=== PATIENT | male | born 1950 | race Caucasian/White ===

== ENCOUNTER 2018-01-20 10:18 | Day surgery (SDC) | payer MEDICARE, BC ==
[2018-01-20] MEDS ORDERED: Bupivacaine 0.5% 10 ML VIAL ONE (11:13)
--- NOTE | 2018-01-20 11:21 | RAD ---
3 VIEWS RIGHT THUMB: Date: 01/20/18 HISTORY: Injury to right thumb. Patient injured right thumb with table saw. FINDINGS: There is soft tissue irregularity involving the distal aspect of the right thumb related to laceratio n. There is associated subcutaneous edema. There is a mildly comminuted fracture involving the distal aspect and tuft of the distal phalanx right thumb related to recent injury. There does appear to be absence of the tip of the distal right finger. No dislocation or other osseous abnormality seen. IMPRESSION: Fracture distal right thumb and involving the tuft of the distal phalanx of the right thumb with abse nce of overlying soft tissue. This may be related to open fracture due to mechanism of injury and abs ence of a portion of the subcutaneous soft tissues. POS: YUMIKO
[2018-01-20] MEDS ORDERED: Adacel (T-DAP) 0.5 ML VIAL ONE (11:34)
[2018-01-20] MEDS ORDERED: CEFAZOLIN/Water 2 GM/20 ML SYRINGE ONE (11:34)
[2018-01-20 12:17] LABS: #Eosinphils 0.6 thou/uL (0.0-0.7); #Lymphocytes 1.3 thou/uL (1.20-3.40); #Monocytes 0.7 thou/uL (0.11-0.59); #Neutrophils 3.8 thou/uL (1.40-6.50); %Basophils 0.5 % (0.0-1.0); %Eosinophils 9.2 % (0.0-10.0); %Lymphocytes 19.5 % (21.0-51.0); %Monocytes 10.7 % (0.0-10.0); Mean Corpuscular HGB CONC 32.3 g/dL (32.0-36.0); Mean Corpuscular Hemoglobin 30.1 pg (27.0-31.0); Mean Corpuscular Volume 93.3 fl (80.0-94.0); Mean Platelet Volume 7.8 fL (7.4-10.4); Platelet Count 249 thou/uL (130-400); RBC Distribution Width 12.8 % (11.5-14.5); Red Blood Cell (RBC) Count 4.66 mill/uL (4.70-6.10); White Blood Cell (WBC) Count 6.4 thou/uL (4.8-10.8)
[2018-01-20] MEDS ORDERED: CEFAZOLIN/Water 2 GM/20 ML SYRINGE SLOW IVP SCH (12:30)
[2018-01-20] MEDS ORDERED: Bupivacaine HCl 0.5%/Epinephrine 1:200,000/PF 30 ml Vial ONE (12:32)
[2018-01-20 12:36] LABS: ALT (SGPT) 16 U/L (8-55); AST (SGOT) 20 U/L (5-34); Albumin 4.3 g/dL (3.4-4.8); Alkaline Phosphatase 97 U/L (40-150); Anion Gap 9 mmol/L (10-20); BUN (Urea Nitrogen) 20 mg/dL (8.4-25.7); Bilirubin, Total 0.5 mg/dL (0.2-1.2); Calc. Creatinine Clearance 0 mL/min (70-130); Calcium 10.6 mg/dL (7.8-10.44); Carbon Dioxide 29 mmol/L (23-31); Chloride 106 mmol/L (98-107); Estimated GFR-MDRD 69; Globulin 2.7 g/dL (2.4-3.5); Glucose 101 mg/dL (80-115); Potassium 3.8 mmol/L (3.5-5.1); Sodium 140 mmol/L (136-145)
--- NOTE | 2018-01-20 12:39 | HP ---
DATE OF CONSULTATION: 01/20/2018 REQUESTING PHYSICIAN: Dr. Jamison. CONSULTING PHYSICIAN: Dr. Bismark Simons. REASON FOR CONSULTATION: Right thumb injury. HISTORY OF PRESENT ILLNESS: This is a 67-year-old white male who presented to the emergency departme today shortly after a table saw injury to his right thumb around 10:00 this morning. The patient states that he is right hand dominant. No other injuries incurred at the time. The patient has had a similar injury to his left thumb in the past with a partial amputation. At the time of my history, the patient has received a digital block to the right thumb. He reports numbness. He denies any pa in to any of the digits or his wrist. Patient states he last ate at 8:30 this morning. PAST MEDICAL HISTORY: Significant for hypertension, diabetes, and asthma. PAST SURGICAL HISTORY: Significant for back surgery, sinus surgery, colon surgery and skin cancer re moval from abdomen. SOCIAL HISTORY: The patient denies alcohol use or drug use. He reports a history of smoking approxi mately 20 years ago. FAMILY HISTORY: Reviewed and noncontributory. ALLERGIES: Include LATEX, PENICILLIN, and SULFA. REVIEW OF SYSTEMS: A 10-point review of systems conducted and otherwise negative except for as state d above. PHYSICAL EXAMINATION: VITAL SIGNS: Blood pressure of 160/76, pulse of 76, respiratory rate of 18, temperature of 98.4, O2 saturation of 96% on room air. GENERAL: The patient is awake, alert, and oriented x3. He is in no acute distress. is present at bedside in emergency department. HEENT: Head is normocephalic, atraumatic. NECK: Supple. LUNGS: Breathing is nonlabored. EXTREMITIES: The right upper extremity was examined. The patient has a partial oblique amputation o f the distal phalanx. This includes a portion of the nail bed. Patient is able to flex and extend a t the IP joint of the thumb. Sensation altered secondary to recent digital block by ER physician. R emainder of hand exam unremarkable. Wrist, elbow and shoulder exam also unremarkable on the affected extremity. 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 Remainder of extremity e xam is otherwise unremarkable. X-rays were taken in the emergency department including 3 views of th e right thumb show a partial oblique amputation of the distal phalanx of the right thumb. Soft tissu es are absent. This includes an oblique fracture of the distal phalanx. ASSESSMENT: Right thumb partial amputation with open fracture. PLAN: At this time, x-rays and plan of care were discussed with Dr. Simons as well as the patient and his . It was explained to the patient that he has an open fracture at this time. We will pr oceed with an irrigation and debridement in the operating room shortly. We will either partially ricardo rten the distal phalanx or create a skin flap in order to cover the exposed bone. Risks, benefits, a nd alternatives of surgery discussed at length with the patient and his . They verbalized unders tanding. We will proceed with surgery.
[2018-01-20] MEDS ORDERED: Midazolam HCl 2 mg/2 ml Vial ONE ×2 (13:02→13:34)
[2018-01-20] MEDS ORDERED: Fentanyl 100 MCG/2 ML VIAL ONE (13:02)
--- NOTE | 2018-01-20 15:13 | OP ---
DATE OF SURGERY: 01/20/2018 PREOPERATIVE DIAGNOSIS: Fingertip amputation, right thumb. POSTOPERATIVE DIAGNOSIS: Fingertip amputation, right thumb. SURGICAL PROCEDURES: 1. Irrigation and debridement of right thumb tip. 2. Partial closure of right thumb tip amputation. ANESTHESIA: Block. SURGEON: Bismark Simons M.D. THERAPIST RESPIRATORY: Ileana Hidalgo PA-C TOURNIQUET TIME: Zero. IMPLANTS: None. DRAINS: None. SPECIMEN: None. OUTCOME: Closed thumb tip amputation with soft tissue coverage over the distal phalanx. INDICATIONS: Ms. Knight is a pleasant 67-year-old right hand dominant gentleman who is status post tabl e saw versus thumb accident in which he sustained trauma to the ulnar border of the thumb with just a small entrance into the tuft of the distal phalanx. Upon evaluation, patient was found to have very vascular tissue and bleeding without obvious exposed bone. The patient now taken to the operating r oom for irrigation, debridement, and closure of the tip with anticipated granulation for the skin los s along the ulnar border. PROCEDURE IN DETAIL: The patient was brought to the operating room and a timeout performed followed by IV sedation. Patient did have a block placed previously. Next, a sterile prep and drape was perf ormed to the right upper extremity. Next, the wound was inspected. There was found to be no obvious foreign debris. There was soft tissue that had fully covered the distal phalanx; however, the tip o f the phalanx could be palpated. There was no obvious loose bony fragments appreciated. This wound was then irrigated with a liter of normal saline using bulb syringe. Next, the nail was trimmed back and then 4-0 nylon suture was passed through the tip of the nail across the zone of injury, grabbing the volar skin of the thumb tip. This basically advanced the volar skin up and over the tip of the distal phalanx getting skin coverage of this bone. Two sutures were placed in identical fashion. At the completion, this was not felt that would be beneficial to attempt to close the extension down th e ulnar border and this was felt to be tissue that would be an excellent candidate for granulation ti ssue and secondary closure. As such, the wound was then dressed with Xeroform gauze and a tube gauze dressing and then patient was transferred to recovery room in stable condition. There were no compl ications. He tolerated the procedure well.
--- NOTE | 2018-01-23 11:49 | PQF ---
[facility] POST DISCHARGE CLINICAL DOCUMENTATION IMPROVEMENT CLARIFICATION FORM Todays Date: 01/23/2018 Patients Name Dioni Knight V Admit Date 01/20/18 Disch Date 01/20/18 Heel Painter Name Sandra Whelan Email: [email or web address] Clinical Indicators - Signs / Symptoms Results and Location in Medical Record [ ] Documentation of: [ ] [ ] Documentation of: [ ] [ ] Documentation of: [ ] [ ] Documentation of: [ ] [ ] Risks [ ] [ ] [ ] Treatment [ ] Laceration Repair of Hand Please specify material type for repair of laceration [ ] [ ] Dr. Bismark Simons The documentation in this patients record requires clarification to ensure coding compliance and accuracy. Check the appropriate box and include in your discharge summary. [ ] [ ] [ ] [ ] Please check this box if this does not apply to this patient [ ] Unable to determine [ ] Other diagnosis: Review the following information and exercise your independent professional judgment in responding to the clarification. Based upon the clinical findings, risk factors, and treatment, please clarify if you are treating one of the above probable or suspected diagnoses. Physician Signature: Date Time MTDD
== END 2018-01-20 15:45 | disposition home or self-care (01) ==
LOC: ERS 10:18 → SDC 12:32
PROVIDERS: ATTEND Orthopaedic Surgery
PROC: 0JQJ0ZZ Repair Right Hand Subcutaneous Tissue and Fascia, Open Approach (ICD-10-PCS; principal; 2018-01-20)
DX: S61.011A Laceration without foreign body of right thumb without damage to nail, initial encounter (principal); I10 Essential (primary) hypertension; E11.9 Type 2 diabetes mellitus without complications; J45.909 Unspecified asthma, uncomplicated; Z87.891 Personal history of nicotine dependence; Z79.4 Long term (current) use of insulin; Z79.899 Other long term (current) drug therapy; Z88.0 Allergy status to penicillin; Z88.2 Allergy status to sulfonamides; Z91.040 Latex allergy status; W31.2XXA Contact with powered woodworking and forming machines, initial encounter
CPT/HCPCS: 36416; 80053; 85025; 86850; 86900; 86901; 90715; J0670; J2250; J3010; J3490

== ENCOUNTER 2020-05-03 07:46 | Outpatient (CLI) | payer MEDICARE, BC ==
--- NOTE | 2020-05-03 08:12 | ULT ---
EXAM: US Abdominal Aorta PROVIDED CLINICAL HISTORY: Screening evaluation for abdominal aortic aneurysm. COMPARISON: None FINDINGS: Transverse and longitudinal sonographic images of the abdominal aorta are performed. Doppler evaluati on with spectral analysis was also performed. The abdominal aorta is normal in caliber with evidence of scattered calcified atherosclerotic plaque. Proximal abdominal aorta measures 1.6 cm in greatest dimension with mid abdominal aorta measuring 1.8 cm in greatest dimension, and the distal abdominal aorta measures 1.9 cm in greatest dimension. T he visualized most proximal common iliac arteries are normal in caliber. No periaortic fluid collection is seen. Flow is demonstrated in the abdominal aorta and iliac arteries. IMPRESSION: Atherosclerotic irregularity involving the abdominal aorta, but there is no evidence of abdominal aor tic aneurysm.
== END 2020-05-03 07:47 | disposition home or self-care (01) ==
LOC: BICULT 07:46
PROVIDERS: ATTEND Physician Assistant
DX: Z13.6 Encounter for screening for cardiovascular disorders (principal); I70.0 Atherosclerosis of aorta
CPT/HCPCS: 76775

== ENCOUNTER 2020-10-11 10:56 | Emergency (ER) | payer MEDICARE, BC ==
[2020-10-11] MEDS ORDERED: Iopamidol-370 76% 500 ML 1 ML ONE (10:57)
[2020-10-11 11:35] LABS: #Eosinphils 0.2 thou/uL (0.0-0.7); #Lymphocytes 1.1 thou/uL (1.20-3.40); #Monocytes 0.9 thou/uL (0.11-0.59); #Neutrophils 10.2 thou/uL (1.40-6.50); %Basophils 0.1 % (0.0-1.0); %Eosinophils 1.3 % (0.0-10.0); %Lymphocytes 8.7 % (21.0-51.0); %Monocytes 7.6 % (0.0-10.0); %Neutrophils 82.4 % (42.0-75.0); Hemoglobin 14.4 g/dL (14.0-18.0); Mean Corpuscular HGB CONC 32.1 g/dL (32.0-36.0); Mean Corpuscular Volume 93.4 fL (78.0-98.0); Mean Platelet Volume 7.4 fL (7.4-10.4); Platelet Count 384 thou/uL (130-400); RBC Distribution Width 11.8 % (11.5-14.5); Red Blood Cell (RBC) Count 4.81 mill/uL (4.70-6.10); White Blood Cell (WBC) Count 12.4 thou/uL (4.8-10.8)
--- NOTE | 2020-10-11 11:47 | RAD ---
EXAM: CHEST ONE VIEW HISTORY: Dyspnea. Positive Covid test on 10/06/2020. Low oxygen saturation. COMPARISON: 02/05/2020 FINDINGS: Cardiac silhouette is magnified by projection. The pulmonary vasculature is within normal limits. Min imal linear and patchy opacities are seen at each lung base which could be related to atelectasis, but focal areas of pneumonitis is a possibility. There is no pleural effusion or pneumothorax. No oth er interval change. IMPRESSION: Minimal linear and patchy bibasilar opacities which could be related to volume loss, but pneumonitis is a possibility.
[2020-10-11 12:04] LABS: ALT (SGPT) 19 U/L (8-55); AST (SGOT) 23 U/L (5-34); Albumin 3.7 g/dL (3.4-4.8); Alkaline Phosphatase 94 U/L (40-110); Anion Gap 14 mmol/L (10-20); BUN (Urea Nitrogen) 23 mg/dL (8.4-25.7); Bilirubin, Total 0.8 mg/dL (0.2-1.2); Calc. Creatinine Clearance 0 mL/min (70-130); Calcium 9.9 mg/dL (7.8-10.44); Carbon Dioxide 24 mmol/L (23-31); Chloride 102 mmol/L (98-107); Globulin 3.5 g/dL (2.4-3.5); Glucose 136 mg/dL (83-110); Protein, Total 7.2 g/dL (5.8-8.1); Sodium 136 mmol/L (136-145)
--- NOTE | 2020-10-11 13:03 | CT ---
Exam: CT angiogram of the chest HISTORY: Positive COVID patient. Chest pain and shortness of breath. COMPARISON: None TECHNIQUE: CT angiogram of the chest is performed in the axial plane. Three-dimensional reformatted i mages are submitted for interpretation FINDINGS: Mediastinum: No mass, lymphadenopathy or hematoma. There are upper normal mediastinal lymph nodes wit h preserved fatty hilum. Heart: Normal size. No significant pericardial fluid. Aorta: No aneurysm or dissection Upper solid abdominal viscera: No acute abnormality. There is atrophy of the pancreas. Trachea and central bronchi: Patent Pleural spaces: No effusion Lung parenchyma: Multifocal peripheral ground glass opacities, consistent with positive COVID status Pneumothorax: None Osseous structures: No lytic or blastic lesions Pulmonary arteries: Adequate contrast opacification pulmonary arterial system to the level of segment al arteries. No filling defect to suggest pulmonary embolism IMPRESSION: 1. No evidence of pulmonary artery embolism to the level of the segmental arteries 2. Multi lobar COVID pneumonia
--- NOTE | 2020-10-15 15:39 | EKG ---
Test Reason : Blood Pressure : / mmHG Vent. Rate : 088 BPM Atrial Rate : 088 BPM P-R Int : 206 ms QRS Dur : 074 ms QT Int : 360 ms P-R-T Axes : 035 025 032 degrees QTc Int : 435 ms Normal sinus rhythm Septal infarct , age undetermined Abnormal ECG Confirmed by KRISTIN MARTINES DO ([id number]), art editor ENMA JONES ([id number]) on 10/15/2020 3:38:47 PM Referred By: Confirmed By:KRISTIN MARTINES DO
== END 2020-10-11 13:59 | disposition home or self-care (01) ==
LOC: ERS 10:56
DX: U07.1 COVID-19 (principal); J12.82 Pneumonia due to coronavirus disease 2019; I10 Essential (primary) hypertension; E11.9 Type 2 diabetes mellitus without complications; J45.909 Unspecified asthma, uncomplicated; Z79.84 Long term (current) use of oral hypoglycemic drugs; Z79.51 Long term (current) use of inhaled steroids; Z79.899 Other long term (current) drug therapy
CPT/HCPCS: 36415; 71045; 71275; 80053; 83880; 84484; 85025; 93005; Q9967

== ENCOUNTER 2022-05-22 13:25 | Outpatient (CLI) | payer MEDICARE, BC | END 2022-05-22 13:26 | disposition home or self-care (01) | LOC: RAD 13:25 | PROVIDERS: ATTEND Internal Medicine | DX: J30.2 Other seasonal allergic rhinitis (principal); J30.89 Other allergic rhinitis | CPT/HCPCS: 71046; 82785; 85025 ==

== ENCOUNTER 2022-07-24 13:29 | Outpatient (CLI) | payer MEDICARE, BC ==
[2022-07-24] MEDS ORDERED: Iopamidol 370 76% 100 ML VIAL ONE (13:38)
== END 2022-07-24 13:30 | disposition home or self-care (01) ==
LOC: BICCT 13:29
PROVIDERS: ATTEND Physician Assistant
DX: R05.3 Chronic cough (principal); K80.20 Calculus of gallbladder without cholecystitis without obstruction
CPT/HCPCS: 71260; 82565; Q9967

== ENCOUNTER 2024-08-26 14:58 | Outpatient (CLI) | payer MEDICARE, BC | END 2024-08-26 14:59 | disposition home or self-care (01) | LOC: RAD 14:58 | PROVIDERS: ATTEND Internal Medicine | DX: R06.00 Dyspnea, unspecified (principal); I51.7 Cardiomegaly | CPT/HCPCS: 71046 ==